=== PATIENT | male | born 1960 | race Caucasian/White ===

== ENCOUNTER → 2016-08-14 | Outpatient (CLI) | payer MEDICAID ==
[~2016-08-14] MED LIST: /GLYB5TA; /TAMS4CA; ALBUTEROL MDI INH; ASPI81TA63; ASPI81TA83; ATIV0.5T; BACITAB3 PO; CLOZ100T; CLOZ200T; CLOZ200T PO; CLOZARIL; DEPA500T; DEPA500T2; DEPA500T2 OR; DEPAKOTE ER; DIVA50TAEC PO; FLOMAX; GLUC1000; GLUC1000 PO; GLUC500T; GLUC850T; GLYB2.5T6 OR; JANU100T PO; JANUVIA; LEVA750T PO; LISI2.5T; LISI5TAB OR; MAG400TA PO; MUCI600T34 PO; NICO14DI3; NICO14DI3 TD; RISP4TAB; RISP4TAB PO; TRAZ100T; TRAZ100T4 PO; TRIC145T PO; TRIC145T19; clozaril
[2016-08-14 15:14] LABS: BASO # 0.1 K/mm3 (0.0-0.2); BASO % 0.8 % (0.0-1.0); EOS # 0.1 K/mm3 (0.0-0.50); EOS % 0.6 % (0.0-3.0); LARGE UNSTAINED CELL # 0.2 K/mm3 (0.0-0.4); LARGE UNSTAINED CELL % 1.8 % (0.0-4.0); LYMPH # 2.3 K/mm3 (1.5-4.5); LYMPH % 18.7 % (24.0-44.0); MEAN CORPUSCULAR HEMOGLOBIN 31.3 pg (27.0-33.0); MEAN CORPUSCULAR VOLUME 89.5 fl (80.0-96.0); MONO # 0.7 K/mm3 (0.0-0.8); MONO % 5.7 % (0.0-5.0); NEUTROPHILS # 8.9 K/mm3 (1.8-7.7); NEUTROPHILS % 72.4 % (36.0-66.0); PLATELET COUNT, AUTOMATED 137 k/mm3 (150-450); RED CELL DISTRIBUTION WIDTH 13.4 % (11.5-14.5); WHITE BLOOD COUNT 12.3 K/mm3 (4.0-10.0)
== END ==
LOC: M LAB 14:34
PROVIDERS: ATTEND Nurse Practitioner Family
DX: I10 Essential (primary) hypertension (principal)

== ENCOUNTER → 2016-08-14 | Outpatient (CLI) | payer MEDICAID ==
[2016-08-14 15:14] LABS: BASO # 0.1 K/mm3 (0.0-0.2); BASO % 0.7 % (0.0-1.0); EOS % 0.4 % (0.0-3.0); LYMPH # 2.4 K/mm3 (1.5-4.5); LYMPH % 18.5 % (24.0-44.0); MEAN CORPUSCULAR HEMOGLOBIN 30.6 pg (27.0-33.0); MEAN CORPUSCULAR HGB CONC 34.5 g/dl (32.0-36.5); MEAN CORPUSCULAR VOLUME 88.9 fl (80.0-96.0); MONO # 0.8 K/mm3 (0.0-0.8); NEUTROPHILS # 9.5 K/mm3 (1.8-7.7); NEUTROPHILS % 72.6 % (36.0-66.0); RED CELL DISTRIBUTION WIDTH 13.3 % (11.5-14.5); WHITE BLOOD COUNT 13.1 K/mm3 (4.0-10.0)
== END ==
LOC: M LAB 14:40
PROVIDERS: ATTEND Psychiatry & Neurology Psychiatry
DX: Z51.81 Encounter for therapeutic drug level monitoring (principal); Z79.01 Long term (current) use of anticoagulants

== ENCOUNTER → 2016-09-16 | Outpatient (CLI) | payer MEDICAID ==
[2016-09-16 12:00] LABS: BASO % 0.4 % (0.0-1.0); EOS % 0.2 % (0.0-3.0); LARGE UNSTAINED CELL # 0.2 K/mm3 (0.0-0.4); LARGE UNSTAINED CELL % 1.6 % (0.0-4.0); LYMPH # 2.4 K/mm3 (1.5-4.5); LYMPH % 19.8 % (24.0-44.0); MEAN CORPUSCULAR HEMOGLOBIN 30.4 pg (27.0-33.0); MEAN CORPUSCULAR HGB CONC 33.7 g/dl (32.0-36.5); MEAN CORPUSCULAR VOLUME 90.2 fl (80.0-96.0); MONO # 0.8 K/mm3 (0.0-0.8); MONO % 6.9 % (0.0-5.0); NEUTROPHILS # 8.1 K/mm3 (1.8-7.7); NEUTROPHILS % 71.1 % (36.0-66.0); PLATELET COUNT, AUTOMATED 171 k/mm3 (150-450); RED CELL DISTRIBUTION WIDTH 13.7 % (11.5-14.5); WHITE BLOOD COUNT 11.3 K/mm3 (4.0-10.0)
== END ==
LOC: M LAB 11:14
PROVIDERS: ATTEND Psychiatry & Neurology Psychiatry
DX: Z79.01 Long term (current) use of anticoagulants (principal)

== ENCOUNTER → 2016-10-14 | Outpatient (CLI) | payer MEDICAID ==
[2016-10-14 16:01] LABS: BASO # 0.1 K/mm3 (0.0-0.2); BASO % 0.6 % (0.0-1.0); EOS % 0.3 % (0.0-3.0); LYMPH # 2.4 K/mm3 (1.5-4.5); LYMPH % 18.6 % (24.0-44.0); MEAN CORPUSCULAR HEMOGLOBIN 31.2 pg (27.0-33.0); MEAN CORPUSCULAR HGB CONC 34.8 g/dl (32.0-36.5); MEAN CORPUSCULAR VOLUME 89.8 fl (80.0-96.0); MONO # 0.8 K/mm3 (0.0-0.8); MONO % 6.5 % (0.0-5.0); NEUTROPHILS # 9.2 K/mm3 (1.8-7.7); NEUTROPHILS % 72.3 % (36.0-66.0); RED CELL DISTRIBUTION WIDTH 13.7 % (11.5-14.5); WHITE BLOOD COUNT 12.7 K/mm3 (4.0-10.0)
== END ==
LOC: M LAB 14:45
PROVIDERS: ATTEND Psychiatry & Neurology Psychiatry
DX: Z01.89 Encounter for other specified special examinations (principal)

== ENCOUNTER → 2016-11-08 | Outpatient (CLI) | payer MEDICAID ==
[2016-11-08 15:48] LABS: BASO # 0.1 K/mm3 (0.0-0.2); BASO % 0.5 % (0.0-1.0); EOS % 0.3 % (0.0-3.0); LARGE UNSTAINED CELL # 0.1 K/mm3 (0.0-0.4); LARGE UNSTAINED CELL % 1.1 % (0.0-4.0); LYMPH % 23.2 % (24.0-44.0); MEAN CORPUSCULAR HEMOGLOBIN 31.2 pg (27.0-33.0); MEAN CORPUSCULAR VOLUME 89.2 fl (80.0-96.0); MONO % 8.2 % (0.0-5.0); NEUTROPHILS # 8.1 K/mm3 (1.8-7.7); NEUTROPHILS % 66.7 % (36.0-66.0); PLATELET COUNT, AUTOMATED 176 k/mm3 (150-450); RED CELL DISTRIBUTION WIDTH 13.4 % (11.5-14.5); WHITE BLOOD COUNT 12.2 K/mm3 (4.0-10.0)
== END ==
LOC: M LAB 14:48
PROVIDERS: ATTEND Psychiatry & Neurology Psychiatry
DX: Z79.899 Other long term (current) drug therapy (principal)

== ENCOUNTER → 2016-12-05 | Outpatient (CLI) | payer MEDICAID ==
[2016-12-05 07:52] LABS: MEAN CORPUSCULAR HEMOGLOBIN 30.6 pg (27.0-33.0); MEAN CORPUSCULAR HGB CONC 34.4 g/dl (32.0-36.5); MEAN CORPUSCULAR VOLUME 89.1 fl (80.0-96.0); RED CELL DISTRIBUTION WIDTH 13.6 % (11.5-14.5); WHITE BLOOD COUNT 10.2 K/mm3 (4.0-10.0)
[2016-12-05 08:38] LABS: ALBUMIN 3.2 GM/DL (3.2-5.2); ALBUMIN/GLOBULIN RATIO 1.03 (1.00-1.93); ALKALINE PHOSPHATASE 95 U/L (45-117); ALT/SGPT 12 U/L (12-78); ANION GAP 7 MEQ/L (8-16); AST/SGOT 7 U/L (15-37); BILIRUBIN,TOTAL 0.4 MG/DL (0.2-1.0); BLOOD UREA NITROGEN 14 MG/DL (7-18); CALCIUM LEVEL 8.2 MG/DL (8.5-10.1); CARBON DIOXIDE LEVEL 31 MEQ/L (21-32); CHLORIDE LEVEL 104 MEQ/L (98-107); CHOLESTEROL LEVEL 157 MG/DL (<200); CREATININE FOR GFR 0.84 MG/DL (0.70-1.30); GLOMERULAR FILTRATION RATE > 60.0 (>56); GLUCOSE, FASTING 189 MG/DL (70-105); POTASSIUM SERUM 4.2 MEQ/L (3.5-5.1); SODIUM LEVEL 142 MEQ/L (136-145); TOTAL PROTEIN 6.3 GM/DL (6.4-8.2); TRIGLYCERIDES LEVEL 207 MG/DL (<150)
== END ==
LOC: M LAB 07:17
PROVIDERS: ATTEND Nurse Practitioner Family
DX: E11.9 Type 2 diabetes mellitus without complications (principal); I10 Essential (primary) hypertension; E78.00 Pure hypercholesterolemia, unspecified

== ENCOUNTER → 2016-12-10 | Outpatient (CLI) | payer MEDICAID ==
[2016-12-10 17:42] LABS: BASO # 0.1 K/mm3 (0.0-0.2); BASO % 0.8 % (0.0-1.0); EOS % 0.2 % (0.0-3.0); LYMPH # 2.9 K/mm3 (1.5-4.5); LYMPH % 24.2 % (24.0-44.0); MEAN CORPUSCULAR HEMOGLOBIN 31.8 pg (27.0-33.0); MEAN CORPUSCULAR HGB CONC 34.5 g/dl (32.0-36.5); MEAN CORPUSCULAR VOLUME 92.3 fl (80.0-96.0); MONO # 0.9 K/mm3 (0.0-0.8); MONO % 7.2 % (0.0-5.0); NEUTROPHILS # 7.8 K/mm3 (1.8-7.7); NEUTROPHILS % 65.3 % (36.0-66.0); RED CELL DISTRIBUTION WIDTH 13.4 % (11.5-14.5); WHITE BLOOD COUNT 11.9 K/mm3 (4.0-10.0)
== END ==
LOC: M LAB 16:28
PROVIDERS: ATTEND Psychiatry & Neurology Psychiatry
DX: Z79.899 Other long term (current) drug therapy (principal)

== ENCOUNTER → 2017-01-07 | Outpatient (CLI) | payer MEDICAID ==
[~2017-01-07] MED LIST changes: +CLOZ25TA3 PO; +DIVA500T9 PO; +GLYB5TA PO; +MAGN1TAB25 PO; +METF1000 PO; +RISP2TAB3 PO; +VALA1TAB PO; +VALT1TAB PO
[2017-01-07 11:32] LABS: BASO # 0.1 K/mm3 (0.0-0.2); BASO % 0.6 % (0.0-1.0); EOS % 0.2 % (0.0-3.0); LYMPH # 1.9 K/mm3 (1.5-4.5); LYMPH % 16.1 % (24.0-44.0); MEAN CORPUSCULAR HEMOGLOBIN 31.4 pg (27.0-33.0); MEAN CORPUSCULAR HGB CONC 34.6 g/dl (32.0-36.5); MEAN CORPUSCULAR VOLUME 90.9 fl (80.0-96.0); MONO # 0.9 K/mm3 (0.0-0.8); MONO % 7.4 % (0.0-5.0); NEUTROPHILS # 8.8 K/mm3 (1.8-7.7); NEUTROPHILS % 74.2 % (36.0-66.0); RED CELL DISTRIBUTION WIDTH 13.3 % (11.5-14.5); WHITE BLOOD COUNT 11.9 K/mm3 (4.0-10.0)
== END ==
LOC: M LAB 10:51
PROVIDERS: ATTEND Psychiatry & Neurology Psychiatry
DX: Z51.81 Encounter for therapeutic drug level monitoring (principal)

== ENCOUNTER 2017-01-12 17:42 | Inpatient (IN) | payer MEDICAID, OTHER ==
[~2017-01-12 17:42] MED LIST changes: -CLOZ25TA3 PO; -DIVA500T9 PO; -GLYB5TA PO; -MAGN1TAB25 PO; -METF1000 PO; -RISP2TAB3 PO; -VALA1TAB PO; -VALT1TAB PO
[2017-01-12] MEDS ORDERED: NS 1,000 ML IV SCH (18:02)
[2017-01-12] MEDS ORDERED: CLOZ200T PO (18:34)
[2017-01-12] MEDS ORDERED: GLYB5TA PO (18:34)
[2017-01-12] MEDS ORDERED: METF1000 PO (18:34)
[2017-01-12] MEDS ORDERED: DIVA500T9 PO (18:34)
[2017-01-12] MEDS ORDERED: MAGN1TAB25 PO (18:34)
[2017-01-12] MEDS ORDERED: RISP2TAB3 PO (18:34)
[2017-01-12] MEDS ORDERED: CLOZ25TA3 PO (18:34)
--- NOTE | 2017-01-12 18:50 | REPUSA ---
CT of the head Clinical history: altered mental status. Technique: Multiple axial CT images were obtained through the head without administration of contrast . Comparison: None. Findings: The ventricles and sulci are symmetric bilaterally. There is no evidence of acute hemorrhag e or infarct. There is no midline shift, mass effect, or extra-axial fluid collection. The osseous st ructures are unremarkable. The visualized paranasal sinuses and mastoid air cells are clear. Impression: Negative study.
[2017-01-12 18:53] LABS: ABG BASE EXCESS 3.2 (-2.0-2.0); ABG HCO3 29.2 MEQ/L (22.0-26.0); ABG PARTIAL PRESSURE CO2 49.3 mmHg (35.0-45.0); ABG PARTIAL PRESSURE O2 60.2 mmHg (75.0-100.0); ABG STANDARD HCO3 27.1 MEQ/L (22.0-26.0); ABG TOTAL CO2 30.8 MEQ/L (22.0-29.0); ABG pH (ARTERIAL) 7.391 UNITS (7.350-7.450)
[2017-01-12 18:57] LABS: INR 0.91
[2017-01-12 19:00] LABS: MEAN CORPUSCULAR HEMOGLOBIN 31.1 pg (27.0-33.0); MEAN CORPUSCULAR HGB CONC 34.8 g/dl (32.0-36.5); MEAN CORPUSCULAR VOLUME 89.2 fl (80.0-96.0); OSMOLALITY SERUM 302 MOSM/KG (275-295); PLATELET COUNT, AUTOMATED 166 k/mm3 (150-450); RED CELL DISTRIBUTION WIDTH 13.2 % (11.5-14.5); WHITE BLOOD COUNT 15.9 K/mm3 (4.0-10.0)
[2017-01-12 19:04] LABS: ALBUMIN 3.1 GM/DL (3.2-5.2); ALBUMIN/GLOBULIN RATIO 0.97 (1.00-1.93); ALKALINE PHOSPHATASE 107 U/L (45-117); ALT/SGPT 10 U/L (12-78); AMYLASE 18 U/L (25-115); ANION GAP 10 MEQ/L (8-16); AST/SGOT 12 U/L (15-37); BILIRUBIN,DIRECT < 0.1 MG/DL (0.0-0.2); BILIRUBIN,TOTAL 0.4 MG/DL (0.2-1.0); BLOOD UREA NITROGEN 13 MG/DL (7-18); CARBON DIOXIDE LEVEL 27 MEQ/L (21-32); CHLORIDE LEVEL 96 MEQ/L (98-107); CREATININE FOR GFR 0.93 MG/DL (0.70-1.30); GLOMERULAR FILTRATION RATE > 60.0 (>56); GLUCOSE, FASTING 388 MG/DL (70-105); POTASSIUM SERUM 4.4 MEQ/L (3.5-5.1); SODIUM LEVEL 133 MEQ/L (136-145); TOTAL PROTEIN 6.3 GM/DL (6.4-8.2)
[2017-01-12 19:33] LABS: METHADONE URINE NEGATIVE (NEGATIVE)
[2017-01-12 19:37] LABS: ANISOCYTOSIS 1+; HYPOCHROMASIA 1+
[2017-01-12] MEDS ORDERED: HumuLIN R (REGULAR) INSULIN (NovoLIN R) **100U/ML** PER UNIT SC STA (19:38)
[2017-01-12] MEDS ORDERED: LACTULOSE 20 GM/30 ML SYRUP UD PO ONE (19:45)
[2017-01-12] MEDS ORDERED: ISOVUE-370 76% 100ML VIAL (Q9967) As Ordered ONE (20:15)
[2017-01-12] MEDS ORDERED: traZODone 100 MG TAB PO SCH (21:00)
[2017-01-12] MEDS ORDERED: HumaLOG INSULIN (NovoLOG) PER UNIT SC SCH (21:00)
--- NOTE | 2017-01-12 21:00 | REPUSA ---
CT angiogram of the chest Clinical statement: Chest pain and shortness of breath. Technique: Multiple axial CT images were obtained from the thoracic inlet through the upper abdomen a fter a bolus administration of nonionic intravenous contrast. Coronal and sagittal reconstructions we re also obtained. Comparison: None. Findings: The pulmonary arteries are well-opacified with contrast, with no intraluminal filling defec ts to suggest embolism. The thoracic aorta is unremarkable. Thyroid gland is within normal limits. Th ere is no thoracic lymphadenopathy. There are no pericardial or pleural effusions.. There is a calcif ied granuloma in the left lower lobe, with adjacentinterstitial scarring. The lungs are otherwise janessa ar. Limited imaging of the upper abdomen is unremarkable. There are no suspicious osseous lesions. Impression: No evidence of pulmonary embolism. No acute infiltrates.
[2017-01-12] MEDS: NS 1,000 ML IV SCH (22:27)
[2017-01-12] MEDS ORDERED: PERCOCET 5MG/325MG TAB PO PRN (22:30)
[2017-01-12] MEDS ORDERED: ACETAMINOPHEN TAB 650MG DOSE (2X325MG) PO PRN (22:30)
[2017-01-12] MEDS ORDERED: DEXTROSE 50% 50 ML SYRINGE IV PRN (22:30)
[2017-01-12] MEDS ORDERED: GLUCAGON FOR INJ 1 MG VIAL (J1610) SC PRN (22:30)
[2017-01-12] MEDS ORDERED: GLUCOSE 4 GM CHEW TABLET PO PRN (22:30)
[2017-01-12] MEDS ORDERED: IPRATROPIUM 0.5MG/ALBUTEROL 2.5MG INH SOL UD 3ML (DUONEB)(J7620) NEB PRN (22:30)
[2017-01-12] MEDS ORDERED: ONDANSETRON 4MG/2ML VIAL (J2405) IV PRN (22:30)
[2017-01-12] MEDS ORDERED: ACYCLOVIR 500 MG in D5W MINI-BAG PLUS 100 ML IV SCH (23:00)
[2017-01-12 23:13] VITALS: BP 161/82
[2017-01-13] MEDS: ACYCLOVIR 500 MG in D5W MINI-BAG PLUS 100 ML IV SCH ×2 (00:19→06:03)
[2017-01-13 01:30] VITALS: BP 167/76
[2017-01-13] MEDS: IPRATROPIUM 0.5MG/ALBUTEROL 2.5MG INH SOL UD 3ML (DUONEB)(J7620) NEB SCH ×2 (02:00→07:17)
[2017-01-13] MEDS: NS 1,000 ML IV SCH (04:00)
[2017-01-13 05:47] LABS: MEAN CORPUSCULAR HEMOGLOBIN 31.2 pg (27.0-33.0); MEAN CORPUSCULAR HGB CONC 35.5 g/dl (32.0-36.5); MEAN CORPUSCULAR VOLUME 87.9 fl (80.0-96.0); RED CELL DISTRIBUTION WIDTH 13.2 % (11.5-14.5)
[2017-01-13 06:00] VITALS: BP 142/67
[2017-01-13 06:03] LABS: ANION GAP 3 MEQ/L (8-16); BLOOD UREA NITROGEN 8 MG/DL (7-18); CALCIUM LEVEL 8.1 MG/DL (8.5-10.1); CARBON DIOXIDE LEVEL 32 MEQ/L (21-32); CHLORIDE LEVEL 102 MEQ/L (98-107); CREATININE FOR GFR 0.61 MG/DL (0.70-1.30); GLOMERULAR FILTRATION RATE > 60.0 (>56); GLUCOSE, FASTING 226 MG/DL (70-105); MAGNESIUM LEVEL 1.4 MG/DL (1.8-2.4); POTASSIUM SERUM 4.1 MEQ/L (3.5-5.1); SODIUM LEVEL 137 MEQ/L (136-145)
--- NOTE | 2017-01-13 06:56 | REP ---
CHEST, TWO VIEWS: HISTORY: Cough. COMPARISON: 01/25/2014. Increased density is present in the left lower lobe consistent with atelectasis or infiltrate. The right lung is clear. The cardiac silhouette is enlarged. The pulmonary vasculature is prominent. IMPRESSION: 1. Left lower lobe atelectasis or infiltrate. 2. Cardiomegaly. Signed by Ace Maldonado MD 01/13/2017 08:28 A
--- NOTE | 2017-01-13 07:04 | REP ---
SOFT TISSUE NECK, THREE VIEWS: HISTORY: Cough. The cervical spine is visualized from C1-C5 in the lateral radiographs. There is no acute fracture or subluxation. The C2-3 through C4-5 intervertebral discs are decreased in height consistent with disc degeneration. Large anterior osteophytes are present on C2-5. Osteophytes at the C2-3 level produce minimal mass effect on the jayy- and upper hypopharynx. Soft tissues of the neck unremarkable. IMPRESSION: Degenerative change as described above. Signed by Ace Maldonado MD 01/13/2017 08:30 A
[2017-01-13] MEDS: MAG SULF 1GM/100ML (MAG RUN) 1 GM in APPROPRIATE DILUENT 1 EA IV SCH ×2 (07:06→07:57)
[2017-01-13] MEDS: HumaLOG INSULIN (NovoLOG) PER UNIT SC SCH ×2 (07:58→12:50)
--- NOTE | 2017-01-13 08:35 | ECGEPIP ---
Stationary ECG Study [facility] - ED Test Date: 2017-01-12 Pat Name: JASKARAN MARLEY JR Department: Room: [place] [address] Gender: M Country Director: donovan : 1960 Requested By: Karla Rae Order Number: [id number] Reading MD: Karla Rae Measurements Intervals Martin Rate: 109 P: 73 TN: 158 QRS: 130 QRSD: 97 T: 22 QT: 327 QTc: 441 Interpretive Statements SINUS TACHYCARDIA POSSIBLE RIGHT VENTRICULAR HYPERTROPHY POSSIBLE LATERAL INFARCT NSTTW ABNORMALITY DECREASED RATE 01/25/14 Electronically Signed On 01-13-2017 8:35:28 EDT by Karla Rae
[2017-01-13] MEDS ORDERED: risperiDONE 2 MG TAB PO SCH (09:00)
[2017-01-13] MEDS ORDERED: ENOXAPARIN 40 MG/0.4 ML SYRINGE (J1650) SC SCH (09:00)
[2017-01-13] MEDS ORDERED: cloZAPine 25 MG TAB (S0136) PO SCH (09:00)
[2017-01-13] MEDS ORDERED: DIVALPROEX 500MG *ER* TAB PO SCH (09:00)
[2017-01-13] MEDS ORDERED: MAG SULF 1GM/100ML (MAG RUN) 1 GM in APPROPRIATE DILUENT 1 EA IV ONE (11:00)
[2017-01-13] MEDS ORDERED: VALT1TAB PO (12:28)
--- NOTE | 2017-01-13 12:59 | DSES ---
DATE OF ADMISSION: 01/12/2017 DATE OF DISCHARGE: PRIMARY CARE PROVIDER: The patient follows up with Dr. Elizondo outpatient. REASON FOR ADMISSION 1. Herpes zoster ophthalmicus. 2. History of diabetes. 3. History of schizophrenia. 4. Hypomagnesemia. 5. Metabolic encephalopathy. 6. Leukocytosis. HISTORY OF PRESENT ILLNESS: The patient is a 56-year-old male who presented to the emergency room with his mother who brought him in because he was unable to get his medications. His mom stated the patient has history of schizophrenia and he ran out of medications. He went to his primary care provider, Dr. Elizondo, on January 10. He was reordered his medications and sent to the pharmacy. The patient went to the pharmacy; however, he was unable to get his medication this weekend due to change in insurance carrier, so mother brought him into the emergency room, also due to altered mental status and metabolic encephalopathy. The patient was admitted. He was noted to have a rash on his forehead extending to his right eye. When asked about it, the patient stated he has had this rash for about 3 to 4 days with some blurry vision over the last day or so. The patient was admitted under the hospitalist service. He was started on IV Acyclovir. Medications were not continued since we were unable to verify his home medications with the pharmacy. HOSPITAL COURSE: On the following day, the patient was seen and examined. He stated that his blurry vision had resolved and has improved tremendously. I spoke with Dr. Barrett at Dr. Roach. He stated that the patient does not need to stay in the hospital and that he will be evaluated for his herpes zoster ophthalmicus outpatient and that he would like to see him as soon as he is discharged in his office. He recommended to start the patient on Valtrex orally and discharge him home. The patient was started on IV magnesium since upon presentation the patient's magnesium was 1.4. After repeat magnesium was done and it was found to be within normal limits, he was discharged home, but first he was discharged to followup at the [facility] with Dr. Barrett at 2:30 this afternoon. His mom picked him up. She stated his mentation is now at baseline. His medications were continued and they were sent to his pharmacy. He was given a course of Valtrex 1 gram every 8 hours for 7 days. Diet diabetic. Activities as tolerated. DISCHARGE INSTRUCTIONS: The patient is to present immediately after discharge to an ophthalmology appointment at 2:30. He is to follow up with his primary care provider, Dr. Elizondo, in 2-5 days. DISCHARGE MEDICATIONS (include): - Valtrex 1 gram by mouth every 8 hours for 7 days - clozapine 200 mg by mouth twice a day and 25 mg by mouth daily - divalproex 1000 mg by mouth twice a day - glyburide 10 mg by mouth twice a day - magnesium oxide 400 mg by mouth twice a day - metformin 1000 mg by mouth twice a day - risperidone 2 mg by mouth twice a day - Januvia 100 mg by mouth daily - trazodone 100 mg by mouth at bedtime DISCHARGE CONDITION: Stable.
[2017-01-13] MEDS ORDERED: cloZAPine 100 MG TAB (S0136) PO SCH (21:00)
--- NOTE | 2017-01-13 21:39 | HPE ---
DATE OF ADMISSION: 01/12/2017 PRIMARY CARE PROVIDER: Anamaria Vincent. CHIEF COMPLAINT: Strange behavior. HISTORY OF PRESENT ILLNESS: The patient is a 56-year-old man with known schizophrenia followed by Dr. Elizondo, who lives with his mother. The patient reportedly ran out of his medication on Friday and called Dr. Elizondo for refills. However, at [facility] he was unable to get his refills for his three anti-hyperglycemic medications. He was hoping to get them [place] but was still unable to do so, and as such and been three days without medications. He was in his regular stated of health until this morning and tolerating this quite well until after lunch while at a barbecue. His mother noticed that he was acting very strange and lethargic, almost as if he was drunk, which was new and unusual for him, and so she brought him to the emergency room. While waiting in the emergency room, the patient began developing a rash on the right eyelid. At the present time, the patient complains that his eye lashes are falling out and that his right eye is swollen. He is to use a urinal hat but is in fact urinating all over himself. He denies complaints. He denies cough. He denies trouble breathing, chest pain, shortness of breath, fever, chills, nausea, vomiting, or diarrhea. PAST MEDICAL HISTORY: 1. Schizophrenia followed by Dr. Elizondo. 2. Type 2 diabetes. 3. Hypertension. 4. Tobacco abuse. 5. Seizure disorder. 6. Obesity. ALLERGIES: PENICILLIN and CROSS REACTORS- rash. SURGICAL HISTORY: None. SOCIAL HISTORY: Lives with his mother. Smokes half pack of cigarettes per day. His mother's name is Kristyn. Her phone number is [phone]. He denies alcohol or illicit drug use. FAMILY HISTORY: Noncontributory. REVIEW OF SYSTEMS: Same as in history of present illness (HPI). HOME MEDICATIONS: - glyburide 10 mg twice a day - metformin 1 gram twice a day - Januvia 100 mg daily - magnesium oxide 400 mg twice a day - clozapine 25 mg daily, 200 mg twice a day - Depakote extended release 1 gram twice a day - risperidone 2 mg twice a day - trazodone 100 mg at bedtime OBJECTIVE: VITAL SIGNS: Temperature afebrile, pulse 100, respiratory rate 18, when I am in the room examining him oxygen saturation is 89% on room air. Blood pressure 188/82. GENERAL: He is a disheveled late middle-aged man, obese, lying in bed, attempting to use the urinal hat but missing and urinating on himself. He does not appear to be in acute distress. HEENT: Appears to have numerous eruptive vesicles which he tells me are new today involving his right eyelid, forehead and the trigeminal nerve in the V1 distribution. he denies any pain associated with the lesions. He has moist mucous membranes. No elevation in central venous pressure (CVP). CARDIOVASCULAR: S1, S2. He is not tachycardic at the time of my exam. RESPIRATORY: Exam is actually quite clear. ABDOMEN: Grossly obese. EXTREMITIES: No clubbing, cyanosis or edema. LABORATORY DATA: WBC 15.9, hemoglobin 17.1, hematocrit 49, platelet count 166. Arterial blood gas reveals a pH of 7.3, pCO2 of 49.3, pO2 of 60.2. Chemistry panel: Sodium 133, potassium 4.4, chloride 96, bicarbonate 27, BUN 13, creatinine 0.9, fasting glucose is 388. Toxicology is negative. UA is positive for glucose. MICROBIOLOGY: Urine culture and blood cultures are pending. IMAGING: The patient did have a CT angiography of the chest which revealed no acute infiltrate or pulmonary embolism. He did have a CT of the head that was a negative study. He did have a neck x-ray, the results of which are apparently pending. ASSESSMENT AND PLAN: This is a 56-year-old man with what appears to be herpes ophthalmicus. 1. Herpes ophthalmicus. This may be the etiology for why the patient is acting unusual; that and the fact that he is hyperglycemic secondary to nonadherence to the medications due to inability to obtain them from two different pharmacies over the last 3-4 days. I will start the patient on acyclovir at the present time, but there does not appear to be any conjunctival or keratitis involvement. However, it has spontaneously arose and over the last several hours, so it may still be an evolving process. Should it begin to involve his conjunctiva or develop keratitis with painful lesions, would consider ophthalmology consultation. We will admit the patient to the medical/surgical floor for intravenous (IV) acyclovir. 2. Hyperglycemia of medication nonadherence. I will place a patient and family services (PFS) consult as the patient and his mother worked extremely hard to attempt to get the medications, but had difficulty doing so regarding insurance issues. For now, we will hold his three antihyperglycemic agents in favor of insulin with sliding scale. 3. Hypochloridemia. The patient appears to be mildly dehydrated, likely related to osmotic diuresis from the hyperglycemia. I will provide him with IV fluids. 4. Hypoxia. The mother reports that the patient does not use oxygen at home. He is 89% on room air in the emergency room. He has a long tobacco history. I am looking back through old records and it looks as though in 2012, the patient was discharged from the hospital on two liters of oxygen. I suspect that he actually is not that far from his baseline. I will provide him with DuoNeb, oxygen to keep saturations greater than 88. I will check a respiratory polymerase chain reaction (PCR) panel to ensure that there is no other etiology to explain this presentation of hypoxia. I do not suspect bacterial pneumonia given his relatively unremarkable CT scan of his chest and clear lungs. 5. Tobacco use. Cessation counseling offered. 6. Seizure disorder. Continue with Depakote. 7. Schizophrenia. Continue with the home regimen of clozapine, risperidone, and trazodone. 8. Deep venous thrombosis (DVT) prophylaxis. The patient will be on Lovenox. DISPOSITION: The patient is admitted to the medical/surgical service to Dr. Bradford Mckeon's service who will continue following the patient at 7 a.m.
[2017-01-14] MEDS ORDERED: VALA1TAB PO (15:42)
== END 2017-01-13 14:10 | disposition home or self-care (01) | DRG 80 ==
LOC: M ED 19:12 → M ED INP 22:27 → M MSPAV 23:11
PROVIDERS: ADMIT Internal Medicine; ATTEND Internal Medicine
DX: B02.30 Zoster ocular disease, unspecified (principal); G93.41 Metabolic encephalopathy; E83.42 Hypomagnesemia; F20.9 Schizophrenia, unspecified; E11.9 Type 2 diabetes mellitus without complications; E66.9 Obesity, unspecified; F17.210 Nicotine dependence, cigarettes, uncomplicated; G40.909 Epilepsy, unspecified, not intractable, without status epilepticus; Z79.84 Long term (current) use of oral hypoglycemic drugs; Z88.0 Allergy status to penicillin; Z91.14 Patient's other noncompliance with medication regimen; Z79.899 Other long term (current) drug therapy

== ENCOUNTER 2017-01-14 14:52 | Inpatient (IN) | payer OTHER, MEDICAID ==
[~2017-01-14] VITALS: Ht 172.7 cm; Wt 102.8 kg
[~2017-01-14 14:52] MED LIST changes: +CLOZ25TA3 PO; +DIVA500T9 PO; +GLYB5TA PO; +MAGN1TAB25 PO; +METF1000 PO; +RISP2TAB3 PO; +VALT1TAB PO
[2017-01-14] MEDS: NS 1,000 ML IV SCH (15:12)
[2017-01-14 15:21] LABS: VENOUS BASE EXCESS 1.7 (-2.0-2.0); VENOUS O2 SATURATION 76.3 % (60.0-80.0); VENOUS PARTIAL PRESSURE CO2 55.3 mmHg (38.0-50.0); VENOUS PARTIAL PRESSURE O2 39.6 mmHg (30.0-50.0); VENOUS STANDARD HCO3 25.3 MEQ/L; VENOUS TOTAL CO2 30.8 MEQ/L (24.0-28.0)
[2017-01-14 15:25] LABS: BASO # 0.1 K/mm3 (0.0-0.2); BASO % 0.9 % (0.0-1.0); EOS % 0.3 % (0.0-3.0); LARGE UNSTAINED CELL # 0.3 K/mm3 (0.0-0.4); LYMPH # 2.7 K/mm3 (1.5-4.5); MEAN CORPUSCULAR HEMOGLOBIN 30.8 pg (27.0-33.0); MEAN CORPUSCULAR HGB CONC 34.5 g/dl (32.0-36.5); MEAN CORPUSCULAR VOLUME 89.3 fl (80.0-96.0); MONO # 0.9 K/mm3 (0.0-0.8); MONO % 6.8 % (0.0-5.0); NEUTROPHILS # 9.2 K/mm3 (1.8-7.7); PLATELET COUNT, AUTOMATED 174 k/mm3 (150-450); RED CELL DISTRIBUTION WIDTH 13.3 % (11.5-14.5); WHITE BLOOD COUNT 12.9 K/mm3 (4.0-10.0)
[2017-01-14] MEDS ORDERED: SODIUM BICARBONATE 8.4% INJ 50 ML SYRINGE IV STA (15:41)
[2017-01-14] MEDS ORDERED: VALA1TAB PO (15:42)
--- NOTE | 2017-01-14 15:51 | REP ---
CT HEAD WITHOUT CONTRAST: HISTORY: Altered mental status. COMPARISON: 01/12/2017 Areas of decreased attenuation are present in the periventricular white matter. This represents small vessel ischemic disease. There is no intraparenchymal hemorrhage, mass or midline shift. The ventricular system and cortical sulci are dilated consistent with mild volume loss. There is no extracerebral collection. The visualized sinuses are clear. IMPRESSION: 1. Small vessel ischemic disease. 2. Mild volume loss. Signed by Ace Maldonado MD 01/14/2017 03:53 P
[2017-01-14 16:07] LABS: ALBUMIN 3.2 GM/DL (3.2-5.2); ALKALINE PHOSPHATASE 86 U/L (45-117); ALT/SGPT 11 U/L (12-78); ANION GAP 8 MEQ/L (8-16); AST/SGOT 5 U/L (15-37); BILIRUBIN,DIRECT < 0.1 MG/DL (0.0-0.2); BILIRUBIN,TOTAL 0.4 MG/DL (0.2-1.0); BLOOD UREA NITROGEN 12 MG/DL (7-18); CALCIUM LEVEL 8.5 MG/DL (8.5-10.1); CARBON DIOXIDE LEVEL 31 MEQ/L (21-32); CHLORIDE LEVEL 99 MEQ/L (98-107); CREATININE FOR GFR 0.85 MG/DL (0.70-1.30); GLOMERULAR FILTRATION RATE > 60.0 (>56); GLUCOSE, FASTING 290 MG/DL (70-105); POTASSIUM SERUM 4.5 MEQ/L (3.5-5.1); SODIUM LEVEL 138 MEQ/L (136-145); TOTAL PROTEIN 6.4 GM/DL (6.4-8.2)
--- NOTE | 2017-01-14 16:20 | REP ---
PORTABLE CHEST: AP portable view of the chest is performed and compared to multiple prior exams. There is no acute infiltrate. There is mild cardiomegaly. The mediastinal silhouette is unchanged. IMPRESSION: No acute infiltrate. Mild cardiomegaly. Signed by Dhruv Dela Cruz MD 01/14/2017 04:31 P
[2017-01-14 18:34] LABS: METHADONE URINE NEGATIVE (NEGATIVE)
[2017-01-14] MEDS ORDERED: ACETAMINOPHEN TAB 650MG DOSE (2X325MG) PO PRN (19:45)
[2017-01-14] MEDS ORDERED: DEXTROSE 50% 50 ML SYRINGE IV PRN (19:45)
[2017-01-14] MEDS ORDERED: GLUCAGON FOR INJ 1 MG VIAL (J1610) SC PRN (19:45)
[2017-01-14] MEDS ORDERED: GLUCOSE 4 GM CHEW TABLET PO PRN (19:45)
[2017-01-14] MEDS ORDERED: ONDANSETRON 4MG/2ML VIAL (J2405) IV PRN (19:45)
--- NOTE | 2017-01-14 19:48 | HPEPDOC ---
Medical History and Physical Date of Admission 01/14/17 History and Physical PRIMARY CARE PROVIDER: Anamaria Vincent ATTENDING: Dr. Bradford Mckeon CHIEF COMPLAINT: AMS HISTORY OF PRESENT ILLNESS: Is a 48-year-old male past history of diabetes, schizophrenia, hypertension, tobacco abuse who was recently discharged yesterday on Valtrex for Herpes zoster ophthalmicus. 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 Patient had been reported to have been at his baseline yesterday, woke up, ate breakfast, and around 12:[address] Wilde's office. It was reported to Dr. Wilde believed that the patient was talking slower than usual, and advised that the patient got to the emergency department. Patient denies headache or blurred vision. Patient denies nausea/vomiting/ abdominal pain. No focal weakness or deficits. PAST MEDICAL HISTORY: As per HPI PAST SURGICAL HISTORY: None SOCIAL HISTORY: Smokes 7 cig x 11 years. No alcohol or illicit drugs. FAMILY HISTORY:Noncontributory ALLERGIES: Please see below. REVIEW OF SYSTEMS: HEENT: Denies sore throat/headache CARDIOVASCULAR: Denies chest pain/palpitations RESPIRATORY: Denies shortness of breath/cough GASTROINTESTINAL: denies nausea/vomiting GENITOURINARY: Denies dysuria/urinary urgency. MUSCULOSKELETAL: Denies myalgias/arthralgias NEUROLOGICAL: Denies any focal weakness HOME MEDICATIONS: Please see below. PHYSICAL EXAMINATION: Vitals: (see below) General: No acute distress, laying comfortably in bed. HEENT: Moist mucous membranes. Eyes: injected conjunctiva b/l. No visual field deficits. Zoster rash. Neck: No JVD or lymphadenopathy Cardiac: RRR, No murmurs Pulm: coarse crackles b/l bases. No wheezing, rhonchi Abd: NT/ND + BS Ext: No edema or cyanosis Neuro: Alert and Oriented to person and place. Strength 5/5 BUE and BLE. CN 2-12 intact. F to N intact Negative pronator drift. Negative Babinki. Sensation to fine touch intact. LABORATORY DATA: See below. IMAGING: CXR 01/14/[address] No infiltrate. Mild Cardiomegaly. CT Head 01/14/17 IMPRESSION: 1. Small vessel ischemic disease. 2. Mild volume loss. MICROBIOLOGY: Please see below. ASSESSMENT/PLAN: 1. AMS - ? related to recent herpes ophth infection vs psychiatric medications. Appears to be transient. Afebrile. Persistent leukocytosis for. Cont valtrex for now and monitor. Neuro checks. CT head negative for acute findings. MRI brain. If persistent will need to obtain EEG to r/o seizure. 2. Herpes zoster ophthalmicus - on Valtrex. Mother states pt was seen by Ophtho yesterday 3. Hypoxia - crackles on exam. CXR with cardiomegaly. Recent CTA chest negative for PE. Will obtain echo to eval EF/valvular function. 4. NIDDM - PO meds held. Started on SSI. 5. Schizophrenia - cont home meds DVT prophy - enoxaparin Pt will be followed by Dr. Bradford Mckeon starting 01/15/17 at 7 AM. Vital Signs Vital Signs Date Time Temp Pulse Resp B/P (MAP) Pulse Ox O2 Delivery O2 Flow Rate FiO2 01/14/17 19:00 96 151/77 (101) 92 01/14/17 15:15 97.9 18 Nasal Cannula 2.0 Laboratory Data Labs 24H Laboratory Tests 2 01/14/17 15:09: White Blood Count 12.9H, Red Blood Count 5.68, Hemoglobin 17.5#, Hematocrit 50.7 , Mean Corpuscular Volume 89.3, Mean Corpuscular Hemoglobin 30.8, Mean Corpuscular Hemoglobin Concent 34.5, Red Cell Distribution Width 13.3, Platelet Count 174, Neutrophils (%) (Auto) 71.0H, Lymphocytes (%) (Auto) 19.0L, Monocytes (%) (Auto) 6.8H, Eosinophils (%) (Auto) 0.3, Basophils (%) (Auto) 0.9 , Neutrophils # (Auto) 9.2H, Lymphocytes # (Auto) 2.7, Monocytes # (Auto) 0.9H, Eosinophils # (Auto) 0.0, Basophils # (Auto) 0.1, Large Unclassified Cells % 2.0 , Large Unclassified Cells # 0.3, Blood Gas Bicarbonate Standard 25.3, Venous Blood pH 7.339, Venous Blood Partial Pressure CO2 55.3H, Venous Blood Partial Pressure O2 39.6, Venous Blood Total Carbon Dioxide 30.8H, Venous Blood HCO3 29.1H, Venous Blood Oxygen Saturation 76.3, Venous Blood Base Excess 1.7, Anion Gap 8, Glomerular Filtration Rate > 60.0, Lactic Acid Level 2.2*H, Calcium Level 8.5, Aspartate Amino Transf (AST/SGOT) 5L, Alanine Aminotransferase (ALT/ SGPT) 11L, Alkaline Phosphatase 86, Total Bilirubin 0.4, Direct Bilirubin < 0.1 , Ammonia 28, Total Creatine Kinase 38L, Creatine Kinase MB 2.1, Creatine Kinase MB Relative Index 5.52H, Troponin I < 0.02, Total Protein 6.4, Albumin 3.2, Albumin/Globulin Ratio 1.00, Thyroid Stimulating Hormone (TSH) 2.580, Salicylates Level 1.8L, Acetaminophen Level < 2.0L, Valproic Acid (Depakene) Level 34.9L, Ethyl Alcohol Level < 0.003 01/14/17 18:01: Urine Amphetamines Screen NEGATIVE, Urine Benzodiazepines Screen NEGATIVE, Urine Opiates Screen NEGATIVE, Urine Methadone Screen NEGATIVE, Urine Barbiturates Screen NEGATIVE, Urine Phencyclidine Screen NEGATIVE, Urine Cocaine Metabolite Screen NEGATIVE, Urine Cannabinoids Screen NEGATIVE CBC/BMP Laboratory Tests 01/14/17 15:09 Red Blood Count 5.68, Mean Corpuscular Volume 89.3, Mean Corpuscular Hemoglobin 30.8, Mean Corpuscular Hemoglobin Concent 34.5, Red Cell Distribution Width 13.3 , Neutrophils (%) (Auto) 71.0 H, Lymphocytes (%) (Auto) 19.0 L, Monocytes (%) ( Auto) 6.8 H, Eosinophils (%) (Auto) 0.3, Basophils (%) (Auto) 0.9, Neutrophils # (Auto) 9.2 H, Lymphocytes # (Auto) 2.7, Monocytes # (Auto) 0.9 H, Eosinophils # (Auto) 0.0, Basophils # (Auto) 0.1 Home Medications Scheduled (Risperidone) 2 Mg Tab, 2 MG PO BID OBTAINED FROM EXT MED HISTORY- PT NOT A GOOD HISTORIAN Clozapine (Clozapine) 200 Mg Tab, 200 MG PO BID OBTAINED FROM EXT MED HISTORY- PT NOT A GOOD HISTORIAN Clozapine (Clozapine) 25 Mg Tab, 25 MG PO DAILY OBTAINED FROM EXT MED HISTORY- PT NOT A GOOD HISTORIAN Divalproex Sodium (Divalproex Sodium ER) 500 Mg Tab, 1,000 MG PO BID OBTAINED FROM EXT MED HISTORY- PT NOT A GOOD HISTORIAN Glyburide (Glyburide) 5 Mg Tab, 10 MG PO BID OBTAINED FROM EXT MED HISTORY- PT NOT A GOOD HISTORIAN Magnesium Oxide (Magnesium) 400 Mg Tab, 400 MG PO BID OBTAINED FROM EXT MED HISTORY- PT NOT A GOOD HISTORIAN Metformin Hydrochloride (Metformin HCl) 1,000 Mg Tab, 1,000 MG PO BID OBTAINED FROM EXT MED HISTORY- PT NOT A GOOD HISTORIAN Sitagliptin Phosphate (Januvia) 100 Mg Tab, 100 MG PO DAILY OBTAINED FROM EXT MED HISTORY- PT NOT A GOOD HISTORIAN Trazodone HCl (Trazodone HCl) 100 Mg Tab, 100 MG PO QHS OBTAINED FROM EXT MED HISTORY- PT NOT A GOOD HISTORIAN Valacyclovir HCl (Valacyclovir HCl) 1 Gm Tab, 1 GM PO Q8H prescribed 01/13 for 7 day supply, pt unable to state if medication has been started since discharge Allergies Coded Allergies: Penicillins (Verified Allergy, Intermediate, RASH, HIVES, 01/12/17) Penicillins Cross Reactors (Verified Allergy, Intermediate, RASH, HIVES, ) NAHOMY MAI MD Jan 14, 2017 19:48
[2017-01-14 20:09] LABS: OSMOLALITY SERUM 304 MOSM/KG (275-295)
[2017-01-14] MEDS: HumaLOG INSULIN (NovoLOG) PER UNIT SC SCH (20:41)
[2017-01-14] MEDS: cloZAPine 100 MG TAB (S0136) PO SCH (21:19)
[2017-01-14] MEDS: traZODone 100 MG TAB PO SCH (21:19)
[2017-01-14] MEDS: DIVALPROEX 500MG *ER* TAB PO SCH (21:20)
[2017-01-14] MEDS: valACYclovir HCL 500 MG TAB PO SCH (21:20)
[2017-01-14] MEDS: risperiDONE 2 MG TAB PO SCH (21:20)
[2017-01-14] MEDS: LevoFLOXacin IV 500 MG in APPROPRIATE DILUENT 1 EA IV SCH (21:26)
--- NOTE | 2017-01-14 21:30 | REPUSA ---
CT of the facial bones without contrast Clinical history: Pain, herpes. Technique: Multiple axial CT images were obtained through the facial bones and paranasal sinuses util izing 3 mm axial slices without administration of contrast. Coronal and sagittal reconstructions were also obtained. Findings: The visualized paranasal sinuses are clear. The osteomeatal complexes are patent bilaterall y. The nasal septum is midline. The visualized mastoid air cells are clear. The osseous structures do not demonstrate any acute abnormalities. The superficial soft tissues are within normal limits. Impression: Unremarkable CT examination of the facial bones and paranasal sinuses.
[2017-01-14 22:30] VITALS: BP 136/65
[2017-01-15] VITALS (8 sets, daily range): BP systolic 120–176; BP diastolic 74–98; O2SAT 96
[2017-01-15] MEDS ORDERED: ISOVUE-370 76% 100ML VIAL (Q9967) As Ordered ONE (04:44)
[2017-01-15 04:56] LABS: ABG BASE EXCESS 4.5 (-2.0-2.0); ABG HCO3 31.8 MEQ/L (22.0-26.0); ABG PARTIAL PRESSURE CO2 57.6 mmHg (35.0-45.0); ABG PARTIAL PRESSURE O2 90.8 mmHg (75.0-100.0); ABG STANDARD HCO3 28.4 MEQ/L (22.0-26.0); ABG TOTAL CO2 33.6 MEQ/L (22.0-29.0)
--- NOTE | 2017-01-15 05:34 | REP ---
Clinical: Acute chest pain. Comparison: 01/12/2017. 12/14/2014. Technique: Axial contrast enhanced images from the thoracic inlet to the upper abdomen using 100 ml Isovue 370 intravenous contrast material with coronal and sagittal re-formations. Findings: Satisfactory enhancement of the pulmonary vasculature is achieved and no filling defects are identified to suggest pulmonary embolus. Thoracic aorta is normal caliber without aneurysm or dissection. Heart and pericardium are normal. Partially calcified left hilar and mediastinal lymph nodes along with calcified granulomata consistent with prior granulomas disease. Mild acute left lower lobe and lingular atelectasis minimally increased when compared to 01/12/2017. No focal consolidation, pleural effusion, or pneumothorax. Tracheobronchial tree is patent. A 5 mm noncalcified nodule in the lateral aspect of the right lower lobe (image 34) likely represents noncalcified granuloma. Impression: 1. No evidence for pulmonary embolus. 2. Mild acute left lower lobe and lingular atelectasis. 3. Evidence of prior granulomatous disease with 5 mm noncalcified nodule in the right lower lobe likely representing noncalcified granuloma. However, 3 to 6-month follow-up may be warranted for reevaluation. Signed by Mike Monahan MD 01/15/2017 05:25 A
[2017-01-15] MEDS: valACYclovir HCL 500 MG TAB PO SCH ×3 (06:16→20:58)
[2017-01-15 06:18] LABS: MEAN CORPUSCULAR HEMOGLOBIN 30.8 pg (27.0-33.0); MEAN CORPUSCULAR HGB CONC 34.2 g/dl (32.0-36.5); RED CELL DISTRIBUTION WIDTH 13.3 % (11.5-14.5); WHITE BLOOD COUNT 10.2 K/mm3 (4.0-10.0)
[2017-01-15 06:29] LABS: ALBUMIN 2.6 GM/DL (3.2-5.2); ALBUMIN/GLOBULIN RATIO 0.79 (1.00-1.93); ALKALINE PHOSPHATASE 72 U/L (45-117); ALT/SGPT 8 U/L (12-78); ANION GAP 4 MEQ/L (8-16); AST/SGOT 3 U/L (15-37); BILIRUBIN,TOTAL 0.5 MG/DL (0.2-1.0); BLOOD UREA NITROGEN 10 MG/DL (7-18); CALCIUM LEVEL 8.1 MG/DL (8.5-10.1); CARBON DIOXIDE LEVEL 31 MEQ/L (21-32); CHLORIDE LEVEL 104 MEQ/L (98-107); CREATININE FOR GFR 0.67 MG/DL (0.70-1.30); GLOMERULAR FILTRATION RATE > 60.0 (>56); GLUCOSE, FASTING 268 MG/DL (70-105); POTASSIUM SERUM 4.1 MEQ/L (3.5-5.1); SODIUM LEVEL 139 MEQ/L (136-145); TOTAL PROTEIN 5.9 GM/DL (6.4-8.2)
--- NOTE | 2017-01-15 07:23 | ECGEPIP ---
Stationary ECG Study [facility] - ED Test Date: 2017-01-14 Pat Name: JASKARAN MARLEY Department: Room: - Gender: M Physician Allergist Immunologist: lilia : 1960 Requested By: Karla Rae Order Number: [id number] Reading MD: Arthur Maguire Measurements Intervals [place] Rate: 107 P: 63 WI: 145 QRS: 132 QRSD: 93 T: 25 QT: 330 QTc: 441 Interpretive Statements SINUS TACHYCARDIA RAD LAE POSSIBLE RIGHT VENTRICULAR HYPERTROPHY SIMILAR TO 01/12/17 Electronically Signed On 01-15-2017 7:22:38 EDT by Arthur Maguire
[2017-01-15] MEDS: HumaLOG INSULIN (NovoLOG) PER UNIT SC SCH ×4 (07:30→21:00)
[2017-01-15 08:31] LABS: ABG BASE EXCESS 3.1 (-2.0-2.0); ABG HCO3 29.1 MEQ/L (22.0-26.0); ABG PARTIAL PRESSURE CO2 48.9 mmHg (35.0-45.0); ABG TOTAL CO2 30.6 MEQ/L (22.0-29.0); ABG pH (ARTERIAL) 7.392 UNITS (7.350-7.450)
--- NOTE | 2017-01-15 09:35 | REP ---
MR BRAIN WITHOUT CONTRAST: HISTORY: Altered mental status. COMPARISON: CT 01/14/2017 The examination is complete as only axial T2-weighted images were obtained. The examination is very limited secondary to motion. There is no definite hemorrhage, infarct, mass or midline shift. The ventricular system and cortical sulci are dilated consistent with mild volume loss. There is no extracerebral collection. IMPRESSION: Limited examination demonstrating mild volume loss. An addendum will be added of the patient returns to complete the examination. Signed by Ace Maldonado MD 01/15/2017 09:39 A
[2017-01-15] MEDS: DIVALPROEX 500MG *ER* TAB PO SCH ×2 (10:42→20:56)
[2017-01-15] MEDS: cloZAPine 25 MG TAB (S0136) PO SCH (10:42)
[2017-01-15] MEDS: risperiDONE 2 MG TAB PO SCH ×2 (10:42→20:56)
[2017-01-15] MEDS: cloZAPine 100 MG TAB (S0136) PO SCH ×2 (10:42→20:57)
[2017-01-15] MEDS: NS 1,000 ML IV SCH ×2 (11:12)
[2017-01-15] MEDS ORDERED: LORazepam 2 MG/ML VIAL (J2060) IV ONE (14:00)
[2017-01-15] MEDS ORDERED: SLF 3 ML SYR IV PRN (15:15)
[2017-01-15] MEDS: traZODone 100 MG TAB PO SCH (20:56)
[2017-01-15] MEDS: LevoFLOXacin IV 500 MG in APPROPRIATE DILUENT 1 EA IV SCH (20:58)
[2017-01-15] MEDS: SLF 3 ML SYR IV SCH (22:00)
--- NOTE | 2017-01-15 22:00 | IPNPDOC ---
Subjective Date Seen The patient was seen on 01/15/17. Subjective Chief Complaint/HPI The patient is a 56-year-old male admitted with a reason for visit of AMS. Constitutional: Denies: Chills, Fever, Night Sweats Pulmonary: Denies: Dyspnea, Cough Cardiovascular: Denies: Chest Pain, Palpitations, Orthopnea, Paroxysmal Noc. Dyspnea, Lt Headedness Neurological: Denies: Weakness, Numbness, Change in speech, Confusion Objective Physical Examination General Exam: Positive: No Acute Distress Neck Exam: Positive: Supple Chest Exam: Positive: Clear to auscultation, Normal air movement Heart Exam: Positive: Rate Normal Abdomen Exam: Positive: Normal bowel sounds, Soft Neuro Exam: Positive: Normal Speech, Cranial Nerves 3-12 NL Assessment /Plan Problems (1) Hypercapnic respiratory failure Status: Resolved (2) Altered mental status Status: Resolved (3) Herpes simplex ophthalmicus Status: Acute Plan/VTE VTE Prophylaxis Ordered?: Yes VS, I&O, 24H, Fishbone Vital Signs/I&O Vital Signs Date Time Temp Pulse Resp B/P (MAP) Pulse Ox O2 Delivery O2 Flow Rate FiO2 01/15/17 20:00 98.4 100 18 135/80 (98) 91 Room Air 01/15/17 12:13 3.0 I&O- Last 24 Hours up to 6 AM 01/15/17 06:00 Intake Total 0 ml Output Total 350 ml Balance -350 ml Laboratory Data 24H LABS Laboratory Tests 2 01/15/17 04:21: B-Type Natriuretic Peptide 13.3 01/15/17 04:23: Anion Gap 4L, Glomerular Filtration Rate > 60.0, Lactic Acid Followup at 4 Hours 0.8, Blood Urea Nitrogen 10, Creatinine 0.67L, Sodium Level 139, Potassium Level 4.1, Chloride Level 104, Carbon Dioxide Level 31, Calcium Level 8.1L, Aspartate Amino Transf (AST/SGOT) 3L, Alanine Aminotransferase (ALT/SGPT) 8L, Alkaline Phosphatase 72, Total Bilirubin 0.5, Total Protein 5.9L, Albumin 2.6L, Troponin I < 0.02, Albumin/Globulin Ratio 0.79L 01/15/17 04:44: Blood Gas Bicarbonate Standard 28.4H, Arterial Blood pH 7.360, Arterial Blood Partial Pressure CO2 57.6H, Arterial Blood Partial Pressure O2 90.8, Arterial Blood Total CO2 33.6H, Arterial Blood HCO3 31.8H, Arterial Blood Base Excess 4.5H, Arterial Blood Oxygen Saturation 96.7 01/15/17 05:34: Bedside Glucose (Misc Panel) 234H 01/15/17 08:24: Blood Gas Bicarbonate Standard 27.0H, Arterial Blood pH 7.392, Arterial Blood Partial Pressure CO2 48.9H, Arterial Blood Partial Pressure O2 59.0L, Arterial Blood Total CO2 30.6H, Arterial Blood HCO3 29.1H, Arterial Blood Base Excess 3.1H, Arterial Blood Oxygen Saturation 90.1L, Arterial Blood Gas Puncture Site RT RADIAL 01/15/17 12:20: Bedside Glucose (Misc Panel) 316H 01/15/17 16:27: Bedside Glucose (Misc Panel) 208H 01/15/17 21:42: Bedside Glucose (Misc Panel) 182H CBC/BMP Laboratory Tests 01/15/17 04:21 Red Blood Count 5.22, Mean Corpuscular Volume 90.0, Mean Corpuscular Hemoglobin 30.8, Mean Corpuscular Hemoglobin Concent 34.2, Red Cell Distribution Width 13.3 01/15/17 04:23 Calcium Level 8.1 L, Aspartate Amino Transf (AST/SGOT) 3 L, Alanine Aminotransferase (ALT/SGPT) 8 L, Alkaline Phosphatase 72, Total Bilirubin 0.5, Total Protein 5.9 L, Albumin 2.6 L DEBBIE LEAL DO Jan 15, 2017 22:00
[2017-01-16 03:57] VITALS: BP 155/89
[2017-01-16] MEDS: valACYclovir HCL 500 MG TAB PO SCH ×3 (06:12→21:07)
[2017-01-16] MEDS: SLF 3 ML SYR IV SCH ×3 (06:12→21:08)
[2017-01-16 08:00] VITALS: BP 182/92
[2017-01-16] MEDS: DIVALPROEX 500MG *ER* TAB PO SCH ×2 (09:31→21:07)
[2017-01-16] MEDS: cloZAPine 25 MG TAB (S0136) PO SCH (09:31)
[2017-01-16] MEDS: cloZAPine 100 MG TAB (S0136) PO SCH ×2 (09:31→21:07)
[2017-01-16] MEDS: risperiDONE 2 MG TAB PO SCH ×2 (09:31→21:07)
[2017-01-16] MEDS: HumaLOG INSULIN (NovoLOG) PER UNIT SC SCH ×4 (09:32→21:22)
[2017-01-16 12:00] VITALS: BP 137/86
[2017-01-16 16:00] VITALS: BP 162/87
--- NOTE | 2017-01-16 18:54 | ECHO ---
DATE OF PROCEDURE: 01/16/2017 Age: 56 Gender: Male Height: 68 inches Weight: 220 pounds Body surface area: 2.13 m2 Inpatient: PCU, room 3229 REFERRING PHYSICIAN: Brennen Hood MD INDICATION: Heart failure (unspecified). 2D MEASUREMENTS: RV: 4.1 cm LV: 5.2 cm Septum: 1.2 cm Posterior wall: 1.1 cm Aortic root: 3.5 cm LA: 3.3 cm LVEF: 65-70% DOPPLER MEASUREMENTS: AV: 1.4 m/s LVOT: 0.85 m/s LVOT diameter: 2.0 cm MV-E: 73, A: 94, E/A ratio: 0.8 Early mitral deceleration time: 197 ms E prime: 10, A prime: 12, EE prime ratio: 7 PV: 0.75 m/s Pulmonary artery acceleration time: 92 ms PASP: 38 mmHg IVC: 1.8 cm COMMENTS: Normal sinus rhythm without intraventricular conduction disturbance. Normal cardiac chamber sizes. Left ventricle (LV) wall thickness was upper limits of normal. On real-time imaging from the parasternal and apical projections, wall motion was symmetrical and hyperkinetic. Normal appearing mitral valvular apparatus and leaflet excursion with no posterior systolic buckling. Three equal sized aortic cusps with marginally thickened cusp edges, but adequate cusp separation. The aortic root size was upper limits of normal. No apparent intracardiac mass or pericardial effusion. Color flow Doppler study taken from the parasternal and apical projections showed trace tricuspid, but no aortic or mitral insufficiency. Guided continuous wave Doppler of his aortic valve showed a normal peak systolic velocity against LV outflow tract obstruction. Pulsed and continuous wave Doppler of his LV inflow tract taken from the apical four chamber projection showed normal diastolic filling velocities against mitral stenosis. There was more prominent late diastolic/atrial dependent filling pattern. Other parameters of LV diastolic function were normal with currently normal estimated mean left atrial pressure. Pulsed and continuous wave Doppler of his pulmonary trunk showed a normal peak systolic velocity against right ventricle (RV) outflow tract obstruction. His pulmonary artery acceleration time was mildly abbreviated consistent with a mild elevation and pulmonary vascular resistance. We attempted to obtain further estimation of his right ventricular systolic pressure using guided continuous wave Doppler of his tricuspid valve but there was no clear spectral envelope of tricuspid regurgitation. His inferior vena cava was of normal size with normal respiratory collapse in keeping with a normal central venous pressure. CONCLUSIONS: Borderline concentric left ventricular hypertrophy with hyperkinetic wall motion. Normal left atrial size with currently normal Doppler assessment of IV diastolic function and estimated mean left atrial pressure. Normal right heart chamber sizes, but Doppler sign of mild pulmonary hypertension. Normal IVC size and collapse against an elevated central venous pressure. Aortic valvular sclerosis without functional valvular abnormality.
[2017-01-16 20:00] VITALS: BP 178/93
[2017-01-16] MEDS: traZODone 100 MG TAB PO SCH (21:06)
[2017-01-16] MEDS: LevoFLOXacin IV 500 MG in APPROPRIATE DILUENT 1 EA IV SCH (21:08)
--- NOTE | 2017-01-16 21:49 | IPNPDOC ---
Subjective Date Seen The patient was seen on 01/16/17. Subjective Chief Complaint/HPI The patient is a 56-year-old male admitted with a reason for visit of AMS. Pulmonary: Denies: Dyspnea, Cough Genitourinary: Denies: Dysuria, Frequency, Incontinence, Retention Musculoskeletal: Denies: Neck Pain, Back Pain, Joint Pain, Muscle Pain, Spasms Objective Physical Examination General Exam: Positive: No Acute Distress Neck Exam: Positive: Supple Chest Exam: Positive: Clear to auscultation, Normal air movement Heart Exam: Positive: Rate Normal Abdomen Exam: Positive: Normal bowel sounds, Soft Neuro Exam: Positive: Normal Speech, Cranial Nerves 3-12 NL Assessment /Plan Problems (1) Hypoxemia Status: Acute Problem Text: * pt had apnic episode * will order nocturnal pulse ox (2) Hypercapnic respiratory failure Status: Resolved Problem Text: * will order nocturnal pulse ox * may need sleep study outpt (3) Altered mental status Status: Resolved Problem Text: * back to his baseline mentation * likely secondary to hypoxia and desaturation at night vs medication * will defer to psych to change medication if necessary * will start on oxygen * will order nocturnal pulse ox (4) Herpes simplex ophthalmicus Status: Acute Problem Text: * continue valtrex (5) Lung nodule Status: Acute Problem Text: * [address] * recommend f/u in 3 months (6) Diabetes Status: Chronic Problem Text: * continue ISS Plan/VTE VTE Prophylaxis Ordered?: Yes VS, I&O, 24H, Fishbone Vital Signs/I&O Vital Signs Date Time Temp Pulse Resp B/P (MAP) Pulse Ox O2 Delivery O2 Flow Rate FiO2 01/16/17 20:00 98.9 105 20 178/93 (121) 94 Room Air 01/16/17 03:57 4.0 I&O- Last 24 Hours up to 6 AM 01/16/17 06:00 Intake Total 1470 ml Output Total 175 ml Balance 1295 ml Laboratory Data 24H LABS Laboratory Tests 2 01/16/17 11:15: Bedside Glucose (Misc Panel) 420H 01/16/17 17:13: Bedside Glucose (Misc Panel) 279H 01/16/17 21:19: Bedside Glucose (Misc Panel) 289H DEBBIE LEAL DO Jan 16, 2017 21:49
[2017-01-16 23:59] VITALS: BP 141/76
[2017-01-17 03:19] VITALS: O2SAT 88
[2017-01-17] MEDS: SLF 3 ML SYR IV SCH ×3 (05:49→21:58)
[2017-01-17] MEDS: valACYclovir HCL 500 MG TAB PO SCH ×3 (05:49→21:53)
[2017-01-17 08:00] VITALS: BP 155/83
[2017-01-17] MEDS: cloZAPine 100 MG TAB (S0136) PO SCH ×2 (08:59→21:53)
[2017-01-17] MEDS: risperiDONE 2 MG TAB PO SCH ×2 (08:59→21:53)
[2017-01-17] MEDS: cloZAPine 25 MG TAB (S0136) PO SCH (08:59)
[2017-01-17] MEDS: DIVALPROEX 500MG *ER* TAB PO SCH ×2 (09:00→21:54)
[2017-01-17] MEDS: HumaLOG INSULIN (NovoLOG) PER UNIT SC SCH ×4 (09:01→21:54)
[2017-01-17 10:19] LABS: BASO # 0.1 K/mm3 (0.0-0.2); BASO % 0.6 % (0.0-1.0); EOS % 0.2 % (0.0-3.0); LARGE UNSTAINED CELL # 0.1 K/mm3 (0.0-0.4); LARGE UNSTAINED CELL % 1.1 % (0.0-4.0); LYMPH # 1.9 K/mm3 (1.5-4.5); LYMPH % 17.1 % (24.0-44.0); MEAN CORPUSCULAR HEMOGLOBIN 31.6 pg (27.0-33.0); MEAN CORPUSCULAR HGB CONC 35.1 g/dl (32.0-36.5); MEAN CORPUSCULAR VOLUME 89.9 fl (80.0-96.0); MONO # 0.6 K/mm3 (0.0-0.8); MONO % 5.8 % (0.0-5.0); NEUTROPHILS # 7.7 K/mm3 (1.8-7.7); NEUTROPHILS % 75.2 % (36.0-66.0); PLATELET COUNT, AUTOMATED 168 k/mm3 (150-450); RED CELL DISTRIBUTION WIDTH 13.1 % (11.5-14.5); WHITE BLOOD COUNT 10.2 K/mm3 (4.0-10.0)
[2017-01-17 10:45] LABS: ALBUMIN 3.1 GM/DL (3.2-5.2); ALBUMIN/GLOBULIN RATIO 0.97 (1.00-1.93); ALKALINE PHOSPHATASE 85 U/L (45-117); ALT/SGPT 10 U/L (12-78); ANION GAP 9 MEQ/L (8-16); AST/SGOT 6 U/L (15-37); BILIRUBIN,TOTAL 0.6 MG/DL (0.2-1.0); BLOOD UREA NITROGEN 11 MG/DL (7-18); CALCIUM LEVEL 8.8 MG/DL (8.5-10.1); CARBON DIOXIDE LEVEL 27 MEQ/L (21-32); CHLORIDE LEVEL 99 MEQ/L (98-107); CREATININE FOR GFR 0.74 MG/DL (0.70-1.30); GLOMERULAR FILTRATION RATE > 60.0 (>56); GLUCOSE, FASTING 313 MG/DL (70-105); POTASSIUM SERUM 4.8 MEQ/L (3.5-5.1); SODIUM LEVEL 135 MEQ/L (136-145); TOTAL PROTEIN 6.3 GM/DL (6.4-8.2)
[2017-01-17 12:00] VITALS: BP 170/92
[2017-01-17 19:49] VITALS: BP 146/75
[2017-01-17] MEDS: traZODone 100 MG TAB PO SCH (21:53)
[2017-01-18 02:00] VITALS: BP 140/85
[2017-01-18] MEDS: SLF 3 ML SYR IV SCH ×3 (05:45→21:50)
[2017-01-18] MEDS: valACYclovir HCL 500 MG TAB PO SCH ×3 (05:45→21:49)
[2017-01-18 06:00] VITALS: BP 152/81
[2017-01-18] MEDS: HumaLOG INSULIN (NovoLOG) PER UNIT SC SCH ×4 (07:30→21:49)
[2017-01-18] MEDS: risperiDONE 2 MG TAB PO SCH ×2 (09:07→21:49)
[2017-01-18] MEDS: cloZAPine 100 MG TAB (S0136) PO SCH ×2 (09:08→21:49)
[2017-01-18] MEDS: DIVALPROEX 500MG *ER* TAB PO SCH ×2 (09:08→21:48)
[2017-01-18] MEDS: cloZAPine 25 MG TAB (S0136) PO SCH (09:12)
--- NOTE | 2017-01-18 09:52 | NOCOX ---
DATE OF PROCEDURE: 01/16/2017 INTERPRETATION: This is an overnight oximetry done on room air. A total of 7 hours and 23 minutes of data was reviewed. Mean oxygen saturation for the study was 89% with a minimum recorded value of 81%. He spent 19.2% of the time with saturations less than 88% with the longest continuous time being 9 minutes and 44 seconds. In review of the SpO2 waveform, there were some 1-2% variations above baseline that may be suggestive of a sleep disordered breathing. IMPRESSION: 1. Nocturnal hypoxemia on room air. 2. 1-2% fluctuations in the SpO2 waveform that may be suggestion of sleep disordered breathing. 3. Clinical correlation will be necessary.
[2017-01-18 10:00] VITALS: BP 137/68
--- NOTE | 2017-01-18 13:46 | IPNPDOC ---
Subjective Date Seen The patient was seen on 01/18/17. Subjective Chief Complaint/HPI The patient is a 56-year-old male admitted with a reason for visit of AMS. Constitutional: Denies: Chills, Fever, Night Sweats Pulmonary: Denies: Dyspnea, Cough Gastrointestinal: Denies: Nausea, Vomiting, Abdominal Pain, Diarrhea, Constipation Objective Physical Examination General Exam: Positive: No Acute Distress Neck Exam: Positive: Supple Chest Exam: Positive: Clear to auscultation, Normal air movement Heart Exam: Positive: Rate Normal Abdomen Exam: Positive: Normal bowel sounds, Soft Neuro Exam: Positive: Normal Speech, Cranial Nerves 3-12 NL Assessment /Plan Problems (1) Hypoxemia Status: Acute Problem Text: * pt qualified for night time oxygen * he will need a formal sleep study outpt * continue oxygen 2 L at night (2) Hypercapnic respiratory failure Status: Resolved (3) Altered mental status Status: Resolved (4) Herpes simplex ophthalmicus Status: Acute Response to Treatment: Stable Problem Text: * continue valtrex * was seen by optho last week (5) Lung nodule Status: Acute Problem Text: * [address] * recommend f/u in 3 months (6) Schizophrenic disorder Status: Chronic Response to Treatment: Stable Problem Text: * pt f/u with Dr cortés outpt * resume current home medication (7) Diabetes Status: Chronic Problem Text: * continue ISS (8) HTN (hypertension) Status: Chronic Plan/VTE VTE Prophylaxis Ordered?: Yes VS, I&O, 24H, Fishbone Vital Signs/I&O Vital Signs Date Time Temp Pulse Resp B/P (MAP) Pulse Ox O2 Delivery O2 Flow Rate FiO2 01/18/17 10:00 98.1 105 20 137/68 (91) 89 Room Air 01/18/17 06:00 1.0 I&O- Last 24 Hours up to 6 AM 01/18/17 06:00 Intake Total 2850 ml Output Total 0 ml Balance 2850 ml Laboratory Data 24H LABS Laboratory Tests 2 01/17/17 20:44: Bedside Glucose (Misc Panel) 307H 01/18/17 06:25: Bedside Glucose (Misc Panel) 267H 01/18/17 11:41: Bedside Glucose (Misc Panel) 316H DEBBIE LEAL DO Jan 18, 2017 13:46
[2017-01-18 14:00] VITALS: BP 150/78
[2017-01-18 18:00] VITALS: BP 130/68
[2017-01-18] MEDS: MIRALAX *UNIT DOSE* 17GM PACKET PO PRN (18:08)
[2017-01-18] MEDS: traZODone 100 MG TAB PO SCH (21:48)
[2017-01-18] MEDS: DOCUSATE SODIUM 100 MG CAP PO SCH (21:49)
[2017-01-18 22:00] VITALS: BP 128/66
[2017-01-19 02:00] VITALS: BP 135/74
[2017-01-19 03:22] LABS: ABG BASE EXCESS 4.5 (-2.0-2.0); ABG HCO3 30.9 MEQ/L (22.0-26.0); ABG PARTIAL PRESSURE CO2 51.7 mmHg (35.0-45.0); ABG PARTIAL PRESSURE O2 84.2 mmHg (75.0-100.0); ABG STANDARD HCO3 28.5 MEQ/L (22.0-26.0); ABG TOTAL CO2 32.5 MEQ/L (22.0-29.0); ABG pH (ARTERIAL) 7.394 UNITS (7.350-7.450)
[2017-01-19] MEDS: valACYclovir HCL 500 MG TAB PO SCH ×3 (05:07→21:30)
[2017-01-19] MEDS: SLF 3 ML SYR IV SCH ×3 (05:07→21:31)
[2017-01-19 06:00] VITALS: BP 138/72
[2017-01-19] MEDS: DIVALPROEX 500MG *ER* TAB PO SCH ×2 (08:17→21:30)
[2017-01-19] MEDS: DOCUSATE SODIUM 100 MG CAP PO SCH ×2 (08:17→21:30)
[2017-01-19] MEDS: cloZAPine 100 MG TAB (S0136) PO SCH ×2 (08:18→21:30)
[2017-01-19] MEDS: HumaLOG INSULIN (NovoLOG) PER UNIT SC SCH ×4 (08:18→21:29)
[2017-01-19] MEDS: risperiDONE 2 MG TAB PO SCH ×2 (08:18→21:30)
[2017-01-19] MEDS: cloZAPine 25 MG TAB (S0136) PO SCH (08:18)
[2017-01-19 10:00] VITALS: BP 164/80
[2017-01-19 14:00] VITALS: BP 140/70
[2017-01-19] MEDS: traZODone 100 MG TAB PO SCH (21:30)
--- NOTE | 2017-01-19 21:54 | IPN ---
DATE: 01/20/2016 I came to see Mr. Canales as I was recently informed that his mother had . She was his tax advisor, essentially. Mr. Canales had been admitted to the hospital earlier in the week with altered mental status. When I saw him today briefly, he was taking a nap but woke up and was coherent, pleasant and I spoke about the purpose of my visit. He indicated he was doing okay and that he was in touch with family and that his sister is involved with further arrangements, particularly when he leaves. In the brief time that I saw him, he was looking more like his usual self and was calm and cooperative. We will see him in the clinic once he is discharged. Living arrangements will need to be sorted out prior to his discharge, as he was living with his elderly mother. AG
[2017-01-20] MEDS: valACYclovir HCL 500 MG TAB PO SCH ×3 (05:14→21:48)
[2017-01-20] MEDS: SLF 3 ML SYR IV SCH ×3 (05:14→21:56)
[2017-01-20] MEDS: MIRALAX *UNIT DOSE* 17GM PACKET PO PRN (05:15)
[2017-01-20 06:00] VITALS: BP 134/64
[2017-01-20] MEDS: DOCUSATE SODIUM 100 MG CAP PO SCH ×2 (09:29→21:48)
[2017-01-20] MEDS: HumaLOG INSULIN (NovoLOG) PER UNIT SC SCH ×4 (09:29→21:49)
[2017-01-20] MEDS: risperiDONE 2 MG TAB PO SCH ×2 (09:29→21:48)
[2017-01-20] MEDS: cloZAPine 25 MG TAB (S0136) PO SCH (09:29)
[2017-01-20] MEDS: cloZAPine 100 MG TAB (S0136) PO SCH ×2 (09:29→21:48)
[2017-01-20] MEDS: DIVALPROEX 500MG *ER* TAB PO SCH ×2 (09:30→21:48)
[2017-01-20 14:00] VITALS: BP 134/63
[2017-01-20] MEDS: traZODone 100 MG TAB PO SCH (21:48)
[2017-01-21] MEDS: valACYclovir HCL 500 MG TAB PO SCH ×3 (05:04→21:19)
[2017-01-21 06:00] VITALS: BP 131/70
[2017-01-21] MEDS: DOCUSATE SODIUM 100 MG CAP PO SCH ×2 (08:44→21:19)
[2017-01-21] MEDS: cloZAPine 100 MG TAB (S0136) PO SCH (08:44)
[2017-01-21] MEDS: HumaLOG INSULIN (NovoLOG) PER UNIT SC SCH ×4 (08:44→21:20)
[2017-01-21] MEDS: cloZAPine 25 MG TAB (S0136) PO SCH (08:44)
[2017-01-21] MEDS: DIVALPROEX 500MG *ER* TAB PO SCH ×2 (08:45→21:19)
[2017-01-21] MEDS: risperiDONE 2 MG TAB PO SCH ×2 (08:45→21:19)
[2017-01-21] MEDS: traZODone 100 MG TAB PO SCH (21:19)
[2017-01-22] MEDS: valACYclovir HCL 500 MG TAB PO SCH ×3 (05:21→21:28)
[2017-01-22 06:00] VITALS: BP_SYST 129; BP_SYST 136; BP_DIAS 66; BP_DIAS 67
[2017-01-22] MEDS: DOCUSATE SODIUM 100 MG CAP PO SCH ×2 (08:14→21:28)
[2017-01-22] MEDS: cloZAPine 25 MG TAB (S0136) PO SCH (08:15)
[2017-01-22] MEDS: risperiDONE 2 MG TAB PO SCH ×2 (08:15→21:28)
[2017-01-22] MEDS: DIVALPROEX 500MG *ER* TAB PO SCH ×2 (08:15→21:28)
[2017-01-22] MEDS: HumaLOG INSULIN (NovoLOG) PER UNIT SC SCH ×4 (08:16→21:28)
[2017-01-22] MEDS: traZODone 100 MG TAB PO SCH (21:28)
[2017-01-23] MEDS: valACYclovir HCL 500 MG TAB PO SCH ×3 (05:01→20:38)
[2017-01-23 06:00] VITALS: BP 132/73
[2017-01-23] MEDS: risperiDONE 2 MG TAB PO SCH ×2 (08:26→20:37)
[2017-01-23] MEDS: DOCUSATE SODIUM 100 MG CAP PO SCH ×2 (08:26→20:37)
[2017-01-23] MEDS: cloZAPine 25 MG TAB (S0136) PO SCH (08:26)
[2017-01-23] MEDS: HumaLOG INSULIN (NovoLOG) PER UNIT SC SCH ×4 (08:26→20:37)
[2017-01-23] MEDS: DIVALPROEX 500MG *ER* TAB PO SCH ×2 (09:32→20:37)
[2017-01-23 14:00] VITALS: BP 158/82
[2017-01-23] MEDS: traZODone 100 MG TAB PO SCH (20:37)
[2017-01-23 22:00] VITALS: BP 145/81
[2017-01-24] MEDS: valACYclovir HCL 500 MG TAB PO SCH (05:54)
[2017-01-24 06:00] VITALS: BP 154/80
[2017-01-24] MEDS: risperiDONE 2 MG TAB PO SCH (08:54)
[2017-01-24] MEDS: DOCUSATE SODIUM 100 MG CAP PO SCH (08:54)
[2017-01-24] MEDS: DIVALPROEX 500MG *ER* TAB PO SCH (08:54)
[2017-01-24] MEDS: cloZAPine 25 MG TAB (S0136) PO SCH (08:54)
[2017-01-24] MEDS: HumaLOG INSULIN (NovoLOG) PER UNIT SC SCH ×2 (08:55→12:00)
[2017-01-24] MEDS ORDERED: METF1000 PO (11:55)
[2017-01-24] MEDS ORDERED: MAGN1TAB25 PO (11:55)
[2017-01-24] MEDS ORDERED: GLYB5TA PO (11:55)
[2017-01-24] MEDS ORDERED: CLOZ25TA3 PO (11:55)
[2017-01-24] MEDS ORDERED: DIVA500T9 PO (11:55)
[2017-01-24] MEDS ORDERED: TRAZ100T4 PO (11:55)
[2017-01-24] MEDS ORDERED: JANU100T PO (11:55)
[2017-01-24] MEDS ORDERED: RISP2TAB3 PO (11:55)
--- NOTE | 2017-01-25 23:09 | DSES ---
DATE OF ADMISSION: 01/19/2017 DATE OF DISCHARGE: 01/24/2017 DISCHARGE DIAGNOSIS: Metabolic encephalopathy. SECONDARY DIAGNOSES: 1. Possible obstructive sleep apnea. 2. Herpes ophthalmicus. 3. Lung nodule. 4. Schizophrenia. 5. Diabetes. 6. Hypertension. CONSULTATIONS: Dr. Elizondo, psychiatry. HOSPITAL COURSE: The patient is a 56-year-old man who is actually admitted on 01/12/2017, as he was unable to obtain his medications. He was hyperglycemic and found to have herpes ophthalmicus. He was started on Valtrex and was actually discharged the following day on 01/13/2017 to an ophthalmology office, where he was recommended to on Valtrex; however, patient presented to Dr. Elizondo's office the next day on 01/14/2017, where Dr. Elizondo, his psychiatrist, who has known him for quite some time, felt as though he was slower than usual, slurring his speech, and felt he was off and advised that he return to the hospital. There was concern that he may have had toxic metabolic encephalopathy secondary to psychiatric medications or related to his herpes infection. The patient was admitted with neurologic check, which were fairly unremarkable. He did have an MRI of the brain, which revealed no definite hemorrhage, infarct, mass, or midline shift. He also had a CT scan of the head, which revealed small-vessel ischemic disease, mild volume loss. He had a maxillofacial CT that was unremarkable. He was found to be hypoxic overnight, and he did have a CT angiogram of the chest with concerns for pulmonary embolism (PE). There was no PE found, but he was found to have a 5 mm noncalcified nodule in the right lower lobe, likely representing noncalcified granuloma with recommended followup in 3-6 months. The patient did quite well. He was seen by Dr. Elizondo, psychiatry, who felt that he had returned to his functional baseline with some medication adjustments that have been made at the time of admission. Unfortunately, the patient was unable to be discharged during his hospital stay. His mother, who is his primary resident care manager rn, did due suddenly. He was made alternative level of care (ALC) status while disposition plan was made. At this time, the patient's sister has agreed to be his primary caregiver and will take him home today and directly to his mother's . She will have him followup with Dr. Elizondo and Anamaria Vincent in their offices this week before transferring his care to [facility], close to where she lives. SUBJECTIVE: Today the patient reports he feels well. He has no complaints. OBJECTIVE: VITAL SIGNS: Temperature 97.6, pulse 89, respiratory rate 16, blood pressure (BP) 154/80, oxygen saturation 98% on room air. GENERAL: He is an obese man, up ambulating around the unit. He does not appear to be in any distress whatsoever. HEENT: Cranial nerves II-XII are grossly intact. His herpes ophthalmicus rash has completely resolved. He has moist mucous membranes. No elevation in central venous pressure (CVP). CARDIOVASCULAR: S1, S2, regular. RESPIRATORY: Clear. ABDOMEN: Obese. EXTREMITIES: No clubbing, cyanosis, or edema. LABORATORY STUDIES: From January 17 revealed WBC of 10.2, hemoglobin of 16, platelet count 168. Chemistry panel: Sodium 135, potassium 4.8, chloride 99, bicarbonate 27, BUN 11, creatinine 0.7. ASSESSMENT AND PLAN: This is a 56-year-old man admitted for toxic metabolic encephalopathy. 1. Toxic metabolic encephalopathy, resolved, possibly related to medication adverse effects. 2. Hypoxemia. The patient did qualify for home oxygen earlier during his stay; however, while he remained on alternative level of care, he was not using oxygen, and he did not have any further desaturations that were noted. Would recommend that this patient should undergo outpatient polysomnography for assessment of possible undiagnosed obstructive sleep apnea. May benefit from continuous positive airway pressure (CPAP). 3. Hypercapnia, resolved. 4. Herpes simplex ophthalmicus, resolved. Completed course of Valtrex. He is to followup with opthalmology as needed. 5. Lung nodule. A [address] Recommend 3-6-month followup. 6. Schizophrenia. Patient will have close followup with Dr. Elizondo. He is continued on clozapine 25 mg daily, Depakote 1 gram twice a day, Risperdal 2 mg twice a day, trazodone 100 mg at bedtime. 7. Diabetes. He will resume his home regimen. 8. Hypertension. Chronic and stable. DISPOSITION: The patient is being discharged home to the care of his sister. New prescriptions for all of his medications have been provided. He is to followup with his PCP within 7 days, the psychiatrist in 7 days. He may need a sleep study to rule out obstructive sleep apnea. His activity is as tolerated. His diet is as tolerated. He does not need to use 2 liters of oxygen at night continuously at this time. MEDICATIONS AT THE TIME OF DISCHARGE: - clozapine 25 mg daily - Depakote extended release 1 gram twice a day - glyburide 10 mg twice a day - magnesium oxide 400 mg twice a day - metformin 1 gram twice a day - Risperdal 2 mg twice a day - Januvia 100 mg daily - trazodone 100 mg at bedtime Greater than 30 minutes spent organization disposition.
== END 2017-01-24 12:00 | disposition home or self-care (01) | DRG 52 ==
LOC: EDBD 14:52 → M ED 15:43 → EDBEDREQTM 18:51 → M ED INP 19:34 → M PCU 01-15 03:53 → M MSPAV 01-17 19:46 → OBSVTOIN 01-19 19:31
PROVIDERS: ADMIT Internal Medicine; ATTEND Internal Medicine
DX: G92 Toxic encephalopathy (principal); B02.30 Zoster ocular disease, unspecified; I10 Essential (primary) hypertension; R06.89 Other abnormalities of breathing; E11.9 Type 2 diabetes mellitus without complications; T43.95XA Adverse effect of unspecified psychotropic drug, initial encounter; R91.1 Solitary pulmonary nodule; F20.9 Schizophrenia, unspecified; F17.210 Nicotine dependence, cigarettes, uncomplicated; R09.02 Hypoxemia; Z79.4 Long term (current) use of insulin; Z79.84 Long term (current) use of oral hypoglycemic drugs; Z88.0 Allergy status to penicillin; E66.9 Obesity, unspecified; Z68.34 Body mass index [BMI] 34.0-34.9, adult